=== PATIENT | female | born 1935 | race Caucasian/White ===

== ENCOUNTER 2017-04-10 12:57 | Emergency (ER) | payer OTHER ==
[2017-04-10 14:03] LABS: BASOPHIL % 0.2 % (0-2); PLATELET COUNT 132 x10^3mcL (130-400)
[2017-04-10 14:08] LABS: RED CELL DISTRIBUTION WIDTH 15.6 % (11.5-14.5)
[2017-04-10 14:11] LABS: CALCIUM 9.5 mg/dL (8.5-10.1); CARBON DIOXIDE 30.5 mmol/L (21-32); CHLORIDE SERUM 103 mmol/L (98-107); CREATININE SERUM 0.9 mg/dL (0.6-1.0); GLUCOSE SERUM 122 mg/dL (74-106); POTASSIUM SERUM 3.7 mmol/L (3.5-5.1); SODIUM SERUM 140 mmol/L (136-145)
[2017-04-10 14:30] LABS: ALBUMIN 3.5 g/dL (3.4-5.0); ALKALINE PHOSPHATASE 108 U/L (46-116); ALT/SGPT 22 U/L (14-59); AST/SGOT 24 U/L (15-37); BILIRUBIN TOTAL 0.65 mg/dL (0.20-1.00); TOTAL PROTEIN, SERUM 7.4 g/dL (6.4-8.2)
[2017-04-10 15:31] VITALS: BP 144/70
== END 2017-04-10 15:31 | disposition home or self-care (01) ==
LOC: ED 12:57
PROVIDERS: Emergency Medicine
DX: R42 Dizziness and giddiness (principal); R07.89 Other chest pain; R11.2 Nausea with vomiting, unspecified; I48.91 Unspecified atrial fibrillation; I10 Essential (primary) hypertension; E78.00 Pure hypercholesterolemia, unspecified; Z79.01 Long term (current) use of anticoagulants; Z79.899 Other long term (current) drug therapy
CPT/HCPCS: 83880; 87804; J7030; Q0092

== ENCOUNTER 2017-10-13 12:23 | Inpatient (IN) | payer OTHER ==
[~2017-10-13] VITALS: Ht 160 cm; Wt 71.2 kg
[2017-10-13 12:30] VITALS: Ht 160 cm; Wt 71.2 kg
[2017-10-13 13:46] LABS: BASOPHIL % 0.6 % (0-2); PLATELET COUNT 140 x10^3mcL (130-400)
[2017-10-13 13:50] LABS: RED CELL DISTRIBUTION WIDTH 16.1 % (11.5-14.5)
[2017-10-13 13:55] LABS: CALCIUM 8.8 mg/dL (8.5-10.1); CARBON DIOXIDE 26.9 mmol/L (21-32); CHLORIDE SERUM 108 mmol/L (98-107); GLUCOSE SERUM 136 mg/dL (74-106); POTASSIUM SERUM 3.9 mmol/L (3.5-5.1); SODIUM SERUM 143 mmol/L (136-145)
[2017-10-13 13:59] LABS: ALBUMIN 3.4 g/dL (3.4-5.0); ALKALINE PHOSPHATASE 121 U/L (46-116); ALT/SGPT 24 U/L (14-59); AST/SGOT 29 U/L (15-37); LIPASE 183 IU/L (73-393)
[2017-10-13 15:28] LABS: UA SPECIFIC GRAVITY >=1.030 (1.005-1.035); microscopic required? YES; urine erythrocyte 2+ (NEGATIVE)
[2017-10-13 15:35] LABS: T3 TOTAL 0.68 ng/mL
[2017-10-13 15:37] LABS: MAGNESIUM 1.8 mg/dL (1.8-2.4); PHOSPHOROUS 3.7 mg/dL (2.5-4.9)
[2017-10-13 15:38] LABS: CHOLESTEROL/HDL RATIO 2.3
[2017-10-13 15:46] LABS: FREE T4 1.12 ng/dL (0.76-1.46); FREE THYROXINE INDEX 3.1 ug/dL (1.4-4.5); T4(THYROXINE) 8.3 ug/dL (4.7-13.3)
[2017-10-13 16:03] VITALS: BP 149/86
[2017-10-13 20:10] VITALS: BP 114/74
[2017-10-14 05:32] VITALS: BP 141/90
[2017-10-14 06:53] LABS: BASOPHIL % 0.8 % (0-2); PLATELET COUNT 127 x10^3mcL (130-400); RED CELL DISTRIBUTION WIDTH 15.9 % (11.5-14.5)
[2017-10-14 08:33] VITALS: BP 91/42
[2017-10-14 09:46] LABS: SODIUM SERUM 145 mmol/L (136-145)
[2017-10-14 09:47] LABS: CALCIUM 8.6 mg/dL (8.5-10.1); CARBON DIOXIDE 27 mmol/L (21-32); CHLORIDE SERUM 107 mmol/L (98-107); CREATININE SERUM 1.2 mg/dL (0.6-1.0); GLUCOSE SERUM 89 mg/dL (74-106); POTASSIUM SERUM 3.7 mmol/L (3.5-5.1)
[2017-10-14 10:31] VITALS: BP 88/63
[2017-10-14 17:18] VITALS: BP 110/56
[2017-10-14 20:50] VITALS: BP 110/72
[2017-10-15 05:55] VITALS: BP 118/82
[2017-10-15 06:07] LABS: CALCIUM 8.3 mg/dL (8.5-10.1); CARBON DIOXIDE 32.6 mmol/L (21-32); CHLORIDE SERUM 108 mmol/L (98-107); CREATININE SERUM 1.4 mg/dL (0.6-1.0); GLUCOSE SERUM 79 mg/dL (74-106); POTASSIUM SERUM 3.2 mmol/L (3.5-5.1); SODIUM SERUM 148 mmol/L (136-145)
[2017-10-15 06:16] LABS: BASOPHIL % 0.6 % (0-2)
[2017-10-15 08:58] LABS: PLATELET COUNT 117 x10^3mcL (130-400); RED CELL DISTRIBUTION WIDTH 15.9 % (11.5-14.5)
[2017-10-15 09:35] VITALS: BP 97/47
[2017-10-15 13:43] VITALS: BP 79/36
[2017-10-15 14:14] VITALS: BP 92/47
[2017-10-15 17:55] VITALS: BP 94/56
[2017-10-15 22:13] VITALS: BP 93/60
[2017-10-16 05:33] VITALS: BP 132/79
[2017-10-16 06:31] LABS: CALCIUM 8.1 mg/dL (8.5-10.1); CARBON DIOXIDE 33.2 mmol/L (21-32); CHLORIDE SERUM 106 mmol/L (98-107); CREATININE SERUM 1.3 mg/dL (0.6-1.0); GLUCOSE SERUM 80 mg/dL (74-106); POTASSIUM SERUM 3.3 mmol/L (3.5-5.1); SODIUM SERUM 146 mmol/L (136-145)
[2017-10-16 06:51] LABS: BASOPHIL % 0.9 % (0-2)
[2017-10-16 06:52] LABS: PLATELET COUNT 119 x10^3mcL (130-400); RED CELL DISTRIBUTION WIDTH 15.8 % (11.5-14.5)
[2017-10-16 09:55] VITALS: BP 84/51
[2017-10-16 12:53] VITALS: BP 108/61
[2017-10-16 17:42] LABS: SOURCE FLUID THORACENTESIS
[2017-10-16 17:43] LABS: APPEARANCE FLUID HAZY; COLOR FLUID PALE YELLOW; LYMPHOCYTE FLUID 40 %; RBC FLUID 718 /cumm; WBC FLUID 183 /cumm
[2017-10-16 17:47] VITALS: BP 99/54
[2017-10-16 21:34] VITALS: BP 102/72
[2017-10-17 05:47] VITALS: BP 102/58
[2017-10-17 06:14] LABS: BASOPHIL % 0.5 % (0-2)
[2017-10-17 06:36] LABS: PLATELET COUNT 113 x10^3mcL (130-400); RED CELL DISTRIBUTION WIDTH 15.7 % (11.5-14.5)
[2017-10-17 06:45] LABS: CALCIUM 8.5 mg/dL (8.5-10.1); CARBON DIOXIDE 33.2 mmol/L (21-32); CHLORIDE SERUM 107 mmol/L (98-107); CREATININE SERUM 1.1 mg/dL (0.6-1.0); GLUCOSE SERUM 79 mg/dL (74-106); POTASSIUM SERUM 3.8 mmol/L (3.5-5.1); SODIUM SERUM 146 mmol/L (136-145)
[2017-10-17 10:46] VITALS: BP 150/102
[2017-10-17 14:25] VITALS: BP 88/48
[2017-10-17 14:56] VITALS: BP 101/64
[2017-10-17 17:55] VITALS: BP 103/59
[2017-10-17 21:56] VITALS: BP 92/51
[2017-10-18 05:19] VITALS: BP 92/55
[2017-10-18 06:27] LABS: CALCIUM 8.1 mg/dL (8.5-10.1); CARBON DIOXIDE 34.1 mmol/L (21-32); CHLORIDE SERUM 104 mmol/L (98-107); GLUCOSE SERUM 82 mg/dL (74-106); POTASSIUM SERUM 3.4 mmol/L (3.5-5.1); SODIUM SERUM 143 mmol/L (136-145)
[2017-10-18 08:05] LABS: BASOPHIL % 0.4 % (0-2)
[2017-10-18 08:08] LABS: PLATELET COUNT 107 x10^3mcL (130-400); RED CELL DISTRIBUTION WIDTH 15.9 % (11.5-14.5)
[2017-10-18 09:47] VITALS: BP 72/48
[2017-10-18 13:29] VITALS: BP 72/42
[2017-10-18] MEDS ORDERED: COUMADIN3 MG PO (13:44)
[2017-10-18] MEDS ORDERED: DIGOXIN0.125 M1 PO (13:46)
[2017-10-18] MEDS ORDERED: LIPI10 PO (13:47)
[2017-10-18 14:35] VITALS: BP 97/58
[2017-10-18 14:40] VITALS: BP 97/58
== END 2017-10-18 15:25 | disposition home or self-care (01) | DRG 291 ==
LOC: ED 12:23 → DU 14:53
PROVIDERS: Emergency Medicine; Family Medicine; Student in an Organized Health Care Education/Training Program
DX: I11.0 Hypertensive heart disease with heart failure (principal); N17.0 Acute kidney failure with tubular necrosis; J90 Pleural effusion, not elsewhere classified; K80.00 Calculus of gallbladder with acute cholecystitis without obstruction; E78.00 Pure hypercholesterolemia, unspecified; E78.5 Hyperlipidemia, unspecified; R31.9 Hematuria, unspecified; Z66 Do not resuscitate; I48.2 Chronic atrial fibrillation; I50.43 Acute on chronic combined systolic (congestive) and diastolic (congestive) heart failure; E11.51 Type 2 diabetes mellitus with diabetic peripheral angiopathy without gangrene; Z53.29 Procedure and treatment not carried out because of patient's decision for other reasons; I08.3 Combined rheumatic disorders of mitral, aortic and tricuspid valves; Z90.49 Acquired absence of other specified parts of digestive tract
CPT/HCPCS: 32555; 83880; 84439; 94150; 97110-GP; 97116-GP; 97530-GP; C1729; J1644; J1940; J2001; J2543; J3490; J7030; Q0092; Q0163